=== PATIENT | male | born 1955 | race Caucasian/White ===

== ENCOUNTER 2019-02-24 10:31 | Outpatient (CLI) | payer MEDICARE ==
--- NOTE | 2019-02-24 13:01 | RAD ---
LEFT SHOULDER THREE VIEWS: INDICATIONS: Shoulder pain. FINDINGS: No evidence of fracture or dislocation. AC joint normally aligned. No significant degenerative acosta ge at the glenohumeral joint. Mild spurring at the AC joint. IMPRESSION: No acute abnormality. POS: OFF
== END 2019-02-24 10:32 | disposition home or self-care (01) ==
LOC: SCSRAD 10:31
PROVIDERS: ATTEND Nurse Practitioner Family
DX: M25.512 Pain in left shoulder (principal)

== ENCOUNTER 2019-03-10 12:36 | Outpatient (CLI) | payer MEDICARE ==
[2019-03-10] MEDS ORDERED: EPINEPHrine 1 MG/ML AMP ONE (13:15)
[2019-03-10] MEDS ORDERED: Iopamidol 300 61% 100 ML VIAL FS ONE (13:15)
[2019-03-10] MEDS ORDERED: Lidocaine 1% PF 10 ML AMP ONE (13:15)
--- NOTE | 2019-03-10 14:57 | RAD ---
EXAM: XR Shoulder Lt Arthrogram PROVIDED CLINICAL HISTORY: Left shoulder pain COMPARISON: None FINDINGS: Informed consent was obtained from the patient. The patient was placed on the fluoroscopy table in th e supine position and the area overlying the left glenohumeral joint was localized and prepped and draped in the usual sterile manner. The soft tissues were infiltrated with 1% buffered lidocaine. Und er intermittent fluoroscopic guidance a 22-gauge spinal needle was advanced into the glenohumeral joint with administration of iodinated contrast containing solution. Needle was withdrawn and hemosta sis achieved. No immediate complications. Postarthrographic images demonstrate evidence for contrast material within the subacromial subdeltoid bursa. Acromioclavicular joint osteoarthrosis paty nges are seen. IMPRESSION: Technically successful left shoulder arthrogram for CT to follow. Please see that report.
--- NOTE | 2019-03-10 15:09 | CT ---
EXAM: CT arthrogram left shoulder PROVIDED CLINICAL HISTORY: Shoulder pain COMPARISON: None FINDINGS: There is a full-thickness, full width tear of the supraspinatus tendon with retraction to about the l evel of the distal acromion. No additional rotator cuff tear is evident by CT. The long head biceps tendon appears normally located within the bicipital groove. The glenoid labrum and glenohumeral articular cartilage demonstrate a normal CT arthrographic appeara nce. There is no evidence for intra-articular body. Acromioclavicular joint osteoarthrosis is demonstrated without significant mass effect upon the subja cent supraspinatus. There is mild tendinitis muscular volume loss without fatty infiltration. The visualized left lung field appears free of significant opacity. There is no evidence for left axi llary lymph node enlargement. IMPRESSION: Full-thickness, full width supraspinatus tendon tear.
== END 2019-03-10 12:37 | disposition home or self-care (01) ==
LOC: RAD 12:36
PROVIDERS: ATTEND Orthopaedic Surgery
DX: M25.512 Pain in left shoulder (principal); M75.122 Complete rotator cuff tear or rupture of left shoulder, not specified as traumatic
CPT/HCPCS: 23350; J0171; J2001; Q9967

== ENCOUNTER 2019-05-18 12:18 | Outpatient (CLI) | payer MEDICARE ==
[2019-05-18 14:43] LABS: Anion Gap 12 mmol/L (10-20); BUN (Urea Nitrogen) 12 mg/dL (8.4-25.7); Calc. Creatinine Clearance 0 mL/min (70-130); Calcium 9.2 mg/dL (7.8-10.44); Carbon Dioxide 27 mmol/L (23-31); Chloride 105 mmol/L (98-107); Estimated GFR-MDRD 75; Glucose 95 mg/dL (80-115); Potassium 4.4 mmol/L (3.5-5.1); Sodium 140 mmol/L (136-145)
== END 2019-05-18 12:19 | disposition home or self-care (01) ==
LOC: LABBT 12:18
PROVIDERS: ATTEND Orthopaedic Surgery
DX: Z01.818 Encounter for other preprocedural examination (principal); M75.102 Unspecified rotator cuff tear or rupture of left shoulder, not specified as traumatic
CPT/HCPCS: 80048; 93005; 93010

== ENCOUNTER → 2019-05-20 | Day surgery (SDC) | payer MEDICARE ==
[2019-05-18 12:55] VITALS: BMI 24.3
[~2019-05-20] MED LIST: Acetaminophen 325 MG TAB PO PRN; Fentanyl 100 MCG/2 ML VIAL ONE; Glycopyrrolate 0.2 MG/ML 5 ML SYRINGE ONE; HYDROcodone/Acetaminophen 10/325 mg Tablet PO PRN; Ketorolac Tromethamine 30 MG/ML VIAL IVP PRN; Ketorolac Tromethamine 30 MG/ML VIAL ONE; Lidocaine 1% PF 5 ML VIAL ONE; Lidocaine 1% w/Epinephrine 1:100K 20 ML VIAL ONE; Midazolam HCl 2 mg/2 ml Vial ONE; Ondansetron PF 4 MG/2 ML Vial IVP PRN; Ondansetron PF 4 MG/2 ML Vial ONE; PHENYLEPHRINE-NS 100 MCG/ML 10 ML SYRINGE ONE; PROPOFOL 200 MG/20 ML VIAL ONE; Promethazine HCl 25 MG/ML VIAL IM PRN; Rocuronium Bromide 10 MG/ML (10ML VIAL) ONE; Ropivacaine 0.2% 550 ML 550 ML NERVE BLCK SCH; Ropivacaine 0.2% HCl/PF (40 MG/20 ML VIAL) ONE; Ropivacaine 0.5% HCl/PF (150 MG/30 ML VIAL) ONE; Zolpidem Tartrate 5 MG TAB PO PRN; ePHEDrine/0.9% NaCl/PF SYRINGE 50 mg/10 ml ONE; traMADol HCl 50 MG TAB PO PRN
--- NOTE | 2019-05-20 15:32 | OP ---
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 PROCEDURES PERFORMED: 1. Left shoulder arthroscopy. 2. Left shoulder subacromial decompression. 3. Arthroscopic left shoulder rotator cuff repair. 4. Left shoulder open biceps tenodesis. [employer]ILER[employer] PIPE FITTER: Benton Servin PA-C ESTIMATED BLOOD LOSS: Approximately 50 mL. COMPLICATIONS: None. ANESTHESIA: He had a general anesthetic as well as a preoperative block. DISPOSITION: He went to recovery room in stable condition. IMPLANTS: One triple-loaded titanium cuff anchor and one 7 x 23 BioComposite Bio-Tenodesis screw. INDICATIONS: This is a 64-year-old male, who comes in complaining of pain and weakness and had a CT arthrogram, which showed him to have a full-thickness rotator cuff tear. At this time, he opted to have surgery. DESCRIPTION OF PROCEDURE: After all appropriate consent forms were explained and signed, he was taken back to the operative room and at this time was given general anesthetic. Once the level of anesthesia was appropriate, the patient was rolled in the right lateral decubitus position with all bony prominences well padded. An axillary roll was placed underneath the right axilla and beanbag was inflated to hold in this position. The arm was taken through full range of motion and then suspended with 10 pounds in standard arthroscopic fashion. The left shoulder and upper extremity were than prepped and draped in standard surgical fashion. The bony anatomical landmarks were then drawn out and the subacromial space was infiltrated with Marcaine with epinephrine. Posterior portal was then established. Scope was placed into the shoulder joint. Anterior working portal was made using a needle localization technique and at this time, diagnostic arthroscopy commenced. The articular surface of the humeral head and glenoid were in good condition. There were no loose bodies in the axillary pouch. He had a significant degenerative labrum anterior, anterior-superior, and superiorly. He also had a leading edge tear of subscapularis and he had a full-thickness supraspinatus tear. Secondary to all these problems, biceps was found to be unstable and I could literally pull it down inwards into the shoulder joint out of the bicipital groove. At this time, a needle was placed through the biceps tendon and a stitch was placed. The scissors was then used to cut the biceps off the superior labrum. We then used a shaver and the SERFAS energy to debride our labrum circumferentially and coagulate any brisk venous bleeding. We also debrided the rotator cuff tear from the undersurface. At this time, scope was placed into the subacromial space. Lateral working portal was made. At this time, the bursa was removed. Large cuff tear was noted. We then performed a small subacromial decompression using the SERFAS energy as well as the renae. We then had to freshen up our tear edges, remove any bursa from around it, trying to free it up and make it more mobile. This was found to be pretty stiff and not very mobile and therefore it was felt we would just do a simple repair right on the articular edge so as not to put too much tension on the repair. A PassPort cannula was placed laterally and at this time, a needle was used to localize the area to place our anchor. We then made a small stab incision and placed the anchor into the tuberosity bone. We then pulled all 3 sets of sutures out the front. We then passed these sequentially in a simple fashion using the Scorpion device. However, the 3rd set we passed in mattress fashion. We then tied them going from back to front. The sutures were cut after each one. This gave us an intact rotator cuff right on the articular edge and at this time, we removed the scope, drained the shoulder and went about doing the biceps. A 15 blade was used to incise down through skin. The Bovie was used to coagulate any brisk venous bleeding. Sharp dissection was used to enter through the deltoid fascia. Finger dissection was used to split the deltoid fibers in line. We then got down to the underlying transverse humeral ligament. This was opened up. The biceps tendon was pulled out. All brisk venous bleeding was removed at this time. We then sutured our biceps tendon, cut off the intra-articular portion of this. We then placed our guide pin, used a 7 -mm reamer to ream to a depth of 25 and placed our 7 x 23 BioComposite Bio-Tenodesis screw in standard fashion. Sutures were tied over top of this, so the screw could not back out. At this time, we then thoroughly irrigated and dried. We then closed our deltoid fascia with a running Vicryl, 2-0 Vicryl, and nylon were used on the portals as well as a small incision. Bulky sterile dressing was applied. The patient was then awakened and he was taken to the recovery room in stable condition. All counts were correct at the end of the case and he did receive preoperative IV antibiotics. Job ID: [id number] [facility]
== END | disposition home or self-care (01) ==
LOC: SDC 09:47
PROVIDERS: ATTEND Orthopaedic Surgery
PROC: 0LS20ZZ Reposition Left Shoulder Tendon, Open Approach (ICD-10-PCS; principal; 2019-05-20)
PROC: 0RHK04Z Insertion of Internal Fixation Device into Left Shoulder Joint, Open Approach (ICD-10-PCS; 2019-05-20)
PROC: 0LM24ZZ Reattachment of Left Shoulder Tendon, Percutaneous Endoscopic Approach (ICD-10-PCS; 2019-05-20)
PROC: 0RNK4ZZ Release Left Shoulder Joint, Percutaneous Endoscopic Approach (ICD-10-PCS; 2019-05-20)
PROC: 3E0T3BZ Introduction of Anesthetic Agent into Peripheral Nerves and Plexi, Percutaneous Approach (ICD-10-PCS; 2019-05-20)
DX: M75.122 Complete rotator cuff tear or rupture of left shoulder, not specified as traumatic (principal); M25.812 Other specified joint disorders, left shoulder; S43.432A Superior glenoid labrum lesion of left shoulder, initial encounter; M25.312 Other instability, left shoulder; G89.18 Other acute postprocedural pain; I10 Essential (primary) hypertension; F41.9 Anxiety disorder, unspecified; Z79.02 Long term (current) use of antithrombotics/antiplatelets; Z79.899 Other long term (current) drug therapy; Z96.21 Cochlear implant status
CPT/HCPCS: 23430; 29826; 29827; 64416; A4306; C1713 ×2; J1885; J2001; J2250; J2405; J2704; J2795; J3010